=== PATIENT | female | born 1990 | race Caucasian/White ===

== ENCOUNTER 2018-03-02 07:49 | Inpatient (IN) | payer OTHER ==
[2018-03-02] VITALS (23 sets, daily range): BP systolic 114–149; BP diastolic 68–94
[~2018-03-02] VITALS: Ht 175.3 cm; Wt 97.0 kg
[~2018-03-02 07:49] MED LIST: COLACE100 MG PO; ENDOCET 5-3251 EACH PO; IBUPROFEN800 MG PO; PRENATAL COMPL1 EACH PO; TYLENOL REGULA325 MG PO
[2018-03-02 09:00] LABS: BASOPHIL (%) 0.1 % (0-1); EOSINOPHIL (%) 0.9 % (0-5); EOSINOPHIL COUNT 0.1 K/uL (0-0.3); HEMATOCRIT 36.5 % (36.0-46.0); HEMOGLOBIN 12.1 G/DL (11.9-15.5); IMMATURE GRANULOCYTE (%) 0.9 % (0.0-0.7); LYMPHOCYTE (%) 12.5 % (15-42); LYMPHOCYTE COUNT 1.5 K/uL (1.0-2.8); MCH 29.4 PG (29.0-34.0); MCHC 33.2 G/DL (30.0-36.0); MCV 88.6 FL (83-99); MONOCYTE COUNT 0.5 K/uL (0-0.8); NEUTROPHIL (%) 81.6 % (45-76); NEUTROPHIL COUNT 9.5 K/uL (1.8-6.4); PLATELET COUNT 241 K/uL (156-360); RBC DIS.WIDTH-CV 13.9 % (11.8-14.6); RBC DIS.WIDTH-SD 44.8 % (39-53); RED BLOOD COUNT 4.12 M/uL (3.80-5.20); WHITE BLOOD COUNT 11.7 K/uL (4.1-10.2)
[2018-03-02 09:06] LABS: AMPHETAMINE NEGATIVE (500 ng/mL); BARBITURATES NEGATIVE (200 ng/mL); BENZODIAZEPINES NEGATIVE (150 ng/mL); BUPRENORPHINE NEGATIVE (10 ng/mL); COCAINE NEGATIVE (150 ng/mL); METHADONE NEGATIVE (200 ng/mL); METHAMPHETAMINE NEGATIVE (500 ng/mL); OPIATES (MORPHINE) NEGATIVE (100 ng/mL); OXYCODONE NEGATIVE (100 ng/mL); PHENCYCLIDINE NEGATIVE (25 ng/mL); PROPOXYPHENE NEGATIVE (300 ng/mL); THC CANNABINOIDS NEGATIVE (50 ng/mL); TRICYCLIC ANTIDEPRESSANTS NEGATIVE (300 ng/mL)
[2018-03-02] MEDS ORDERED: CLEOCIN300 MG PO (11:28)
[2018-03-03] VITALS (11 sets, daily range): BP systolic 100–139; BP diastolic 53–75
[2018-03-03] MEDS ORDERED: IBUPROFEN800 MG PO (05:16)
[2018-03-03] MEDS ORDERED: ZOLOFT50 MG PO (05:34)
[2018-03-04 00:14] VITALS: BP 105/57
[2018-03-04 22:24] VITALS: BP 119/67
== END 2018-03-05 14:28 | disposition home or self-care (01) | DRG 775 ==
LOC: LDRP-OP 07:49 → 2WEST 07:50 → LDRP-OP 13:44 → 2WEST 03-03 04:19 → LDRP-OP 04-07 08:45
PROVIDERS: Nurse Practitioner
PROC: 00HU33Z Insertion of Infusion Device into Spinal Canal, Percutaneous Approach (ICD-10-PCS; principal; 2018-03-02)
PROC: 10907ZC Drainage of Amniotic Fluid, Therapeutic from Products of Conception, Via Natural or Artificial Opening (ICD-10-PCS; principal; 2018-03-02)
PROC: 3E0R3BZ Introduction of Anesthetic Agent into Spinal Canal, Percutaneous Approach (ICD-10-PCS; principal; 2018-03-02)
PROC: 3E0P7VZ Introduction of Hormone into Female Reproductive, Via Natural or Artificial Opening (ICD-10-PCS; principal; 2018-03-02)
PROC: 10E0XZZ Delivery of Products of Conception, External Approach (ICD-10-PCS; 2018-03-03)
DX: O99.824 Streptococcus B carrier state complicating childbirth (principal); O69.81X0 Labor and delivery complicated by cord around neck, without compression, not applicable or unspecified; O99.344 Other mental disorders complicating childbirth; F41.0 Panic disorder [episodic paroxysmal anxiety]; O99.353 Diseases of the nervous system complicating pregnancy, third trimester; G43.909 Migraine, unspecified, not intractable, without status migrainosus; H02.409 Unspecified ptosis of unspecified eyelid; Z3A.39 39 weeks gestation of pregnancy; Z37.0 Single live birth
CPT/HCPCS: 85025; C1755; G0378; J2405; J2540; J3010; J7120